=== PATIENT | female | born 1990 | race African-American/Black ===

== ENCOUNTER 2019-04-16 07:14 | Day surgery (SDC) | payer MEDICAID ==
[~2019-04-16] VITALS: Ht 170.2 cm; Wt 74.1 kg
[~2019-04-16 07:14] MED LIST: PRED10TA3 PO; SODIUM CHLORIDE 0.9% 1,000 ML IV ONE
[2019-04-16] MEDS ORDERED: ALBUTEROL SULFATE 2.5 MG/0.5 ML NEB SOLUTION NEB ONE (07:15)
[2019-04-16] MEDS ORDERED: BENZOCAINE 20% 50 MCG/SPRAY 57 GM TP ONE (07:15)
[2019-04-16] MEDS ORDERED: LIDOCAINE 4% 50 ML SOLUTION TP ONE (07:15)
[2019-04-16] MEDS ORDERED: LIDOCAINE 2% 30 ML JELLY TP ONE (07:15)
[2019-04-16] MEDS ORDERED: FentaNYL CITRATE-PF 100 MCG/2 ML VIAL ONE (08:13)
[2019-04-16] MEDS ORDERED: MIDAZOLAM HCL 2 MG/2 ML VIAL ONE (08:13)
[2019-04-16] MEDS ORDERED: CETI10TA59 PO (09:16)
[2019-04-16] MEDS ORDERED: CITA-106 PO (09:16)
[2019-04-16] MEDS ORDERED: P-EP-31 PO (09:16)
[2019-04-16] MEDS ORDERED: COMBISP IH (09:16)
[2019-04-16] MEDS ORDERED: PANT40TA25 PO (09:16)
[2019-04-16] MEDS ORDERED: DOXY50CA2 PO (09:16)
[2019-04-16] MEDS ORDERED: DOXY100C PO (09:16)
[2019-04-16] MEDS ORDERED: OXYC5TAB3 PO (09:16)
[2019-04-16] MEDS ORDERED: MONT10TA21 PO (09:16)
[2019-04-16] MEDS ORDERED: MethylPREDNISolone SOD SUCC 125 MG/2 ML VIAL ONE (09:25)
[2019-04-16] MEDS ORDERED: MethylPREDNISolone SOD SUCC 125 MG/2 ML VIAL IVP ONE (09:30)
[2019-04-16] MEDS ORDERED: OXYGEN THERAPY IH SCH (20:00)
== END 2019-04-16 11:00 | disposition home or self-care (01) ==
LOC: SURGERY 07:14
PROVIDERS: ATTEND Internal Medicine Critical Care Medicine
DX: J38.4 Edema of larynx (principal); B37.0 Candidal stomatitis; Z88.8 Allergy status to other drugs, medicaments and biological substances; Z98.890 Other specified postprocedural states; Z72.89 Other problems related to lifestyle
CPT/HCPCS: 31623; 31624; 71045; 84703; 87015; 87070; 87101; 87205; 87206; 87220; 88108; 88312; J2250; J2930; J3010; J7030